=== PATIENT | female | born 1945 | race Caucasian/White ===

== ENCOUNTER 2019-09-25 16:35 | Emergency (ER) | payer MEDICARE, BC ==
--- NOTE | 2019-09-25 17:12 | CR ---
PROCEDURE INFORMATION: Exam: XR Left Shoulder Exam date and time: 09/25/2019 5:00 PM Age: 73 years old Clinical indication: Other: Fall/pain; Additional info: Fell on rocks, left shoulder pain TECHNIQUE: Imaging protocol: XR Left shoulder. Views: 2 or more views. COMPARISON: No relevant prior studies available. FINDINGS: Bones/joints: Slightly impacted left humeral neck fracture. There are also patchy lucencies in the proximal humeral diaphysis. Soft tissues: Normal. IMPRESSION: Impacted humeral neck fracture. Pathologic fracture is a consideration. Unclear if the lucencies are due to process such as asymmetric osteopenia or metastatic disease or multiple myeloma.
[2019-09-25] MEDS ORDERED: Acetaminophen/HYDROcodone 325-10 MG Tab PO ONE (17:26)
[2019-09-25] MEDS ORDERED: Acetaminophen/HYDROcodone 325-10 MG Tab ONE (17:31)
--- NOTE | 2019-09-25 17:31 | EDM.PDOC ---
Scribed by Shirley Muro 09/25/19 3546 for Emmett Rasheed MD ED HPI GENERAL MEDICAL PROBLEM - General Chief Complaint: Upper Extremity Injury/Pain Stated Complaint: FELL OF A ROCK PILE, LEFT SHOULDER AREA HURTS Time Seen by Provider: 09/25/19 16:54 Source of Information: Reports: Patient, RN, RN Notes Reviewed History Limitations: Reports: No Limitations - History of Present Illness INITIAL COMMENTS - FREE TEXT/NARRATIVE: Patient presents to ER via POV with complaint of left shoulder pain after slipping and falling onto the back on a rock pile. Patient states she did hear something crack. Patient has good CMS to left arm. able to move finger, wrist, elbow, but has pain when attempting to lift arm upward or outward. Onset: Today Duration: Getting Worse Location: Reports: Upper Extremity, Left Quality: Reports: Ache Severity: Moderate Improves with: Reports: None Worsens with: Reports: None Associated Symptoms: Reports: No Other Symptoms Left Shoulder Pain Score (Numeric/FACES): 10 - Related Data Allergies Allergy/AdvReac Type Severity Reaction Status Date / Time Sulfa (Sulfonamide Allergy Cannot Verified 09/25/19 16:47 Antibiotics) Remember Social & Family History - Family History Family Medical History: Noncontributory - Living Situation & Occupation Living situation: Reports: with Family Occupation: Retired Review of Systems - Review of Systems Review Of Systems: Comprehensive ROS is negative, except as noted in HPI. ED EXAM, GENERAL - Physical Exam Exam: See Below Exam Limited By: No Limitations General Appearance: Alert, WD/WN, No Apparent Distress Nose: Normal Inspection Throat/Mouth: Normal Inspection Head: Atraumatic, Normocephalic Neck: Normal Inspection, Supple, Non-Tender, Full Range of Motion Respiratory/Chest: No Respiratory Distress Cardiovascular: Normal Peripheral Pulses Extremities: Normal Capillary Refill, Arm Pain, Limited Range of Motion (Left shoulder with acute tenderness). No: Joint Swelling Neurological: Alert, Oriented, No Motor/Sensory Deficits Psychiatric: Normal Mood Skin Exam: Warm, Dry, Intact, Normal Color, No Rash Course - Vital Signs Last Recorded V/S: Last Vital Signs Temp 97.9 F 09/25/19 16:48 Pulse 80 09/25/19 16:48 Resp 16 09/25/19 16:48 BP 162/69 H 09/25/19 16:48 Pulse Ox 100 09/25/19 16:48 - Orders/Labs/Meds Orders: Active Orders 24 hr Category Date Time Status Immobilizer [RC] ASDIRECTED Care 09/25/19 17:25 Ordered Meds: Medications Discontinued Medications Generic Name Dose Route Start Last Admin Trade Name Ned PRN Reason Stop Dose Admin Hydrocodone Bitart/Acetaminophen 1 tab 09/25/19 17:26 [place] 325-10 Mg PO 09/25/19 17:27 ONETIME ONE - Radiology Interpretation Free Text/Narrative:: Left shoulder x-ray: Impacted humeral neck fracture. Pathologic fracture is a consideration. Unclear if the lucencies are due to process such as asymmetric osteopenia or metastatic disease or multiple myeloma. See rad report. Departure - Departure Time of Disposition: 17:28 Disposition: Home, Self-Care 01 Condition: Good Clinical Impression: Closed fracture of left proximal humerus Qualifiers: Encounter type: initial encounter Fracture morphology: other fracture Fracture alignment: nondisplaced Qualified Code(s): S42.295A - Other nondisplaced fracture of upper end of left humerus, initial encounter for closed fracture - Discharge Information *PRESCRIPTION DRUG MONITORING PROGRAM REVIEWED*: Not Applicable *COPY OF PRESCRIPTION DRUG MONITORING REPORT IN PATIENT SIMONE: Not Applicable Instructions: Humerus Fracture Treated With Immobilization Forms: ED Department Discharge Additional Instructions: Rx: Hydrocodone APAP 5mg/325mg Do not remove left arm/shoulder brace. Call for an orthopedic appointment September 26. [facility] Sepsis Event Note - Evaluation Sepsis Screening Result: No Definite Risk - Focused Exam Vital Signs: Vital Signs Temp Pulse Resp BP Pulse Ox 09/25/19 16:48 97.9 F 80 16 162/69 H 100 Date Exam was Performed: 09/25/19 Time Exam was Performed: 17:28 - My Orders Last 24 Hours: My Active Orders 09/25/19 17:25 Immobilizer [RC] ASDIRECTED - Assessment/Plan Last 24 Hours: My Active Orders 09/25/19 17:25 Immobilizer [RC] ASDIRECTED I have read and agree with the documentation that has been completed regarding this visit. By signing this record, I attest that the documentation was completed in my physical presence and is an accurate record of the encounter.
== END 2019-09-25 17:40 | disposition home or self-care (01) ==
LOC: DL.ED 16:35
DX: S42.295A Other nondisplaced fracture of upper end of left humerus, initial encounter for closed fracture (principal); Z88.2 Allergy status to sulfonamides; W01.0XXA Fall on same level from slipping, tripping and stumbling without subsequent striking against object, initial encounter
CPT/HCPCS: 73030; 99283; 99284; A9270